=== PATIENT | female | born 1935 | race Caucasian/White ===

== ENCOUNTER 2018-06-19 05:38 | Inpatient (IN) ==
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
[2018-06-19] MEDS ORDERED: Metoprolol Tartrate 25 MG Tablet PO ONE (06:30)
[2018-06-19] MEDS ORDERED: Sodium Chlor 0.9% Inj 500 ML IV.CONT ONE (06:30)
[2018-06-19] MEDS ORDERED: Chlorhexidine Gluconate 2% 1 Pack (2 Cloths) TOPICAL ONE (06:30)
[2018-06-19] MEDS ORDERED: Vancomycin Inj 1,000 MG in Sodium Chlor 0.9% Inj 250 ML IV.SIG SCH (07:00)
[2018-06-19] MEDS ORDERED: SODIUM CHLOR 0.9% IV.SIG SCH ×2 (07:00→09:25)
[2018-06-19] MEDS ORDERED: TRANEXAMIC ACID IV.SIG SCH ×2 (07:00→09:25)
[2018-06-19] MEDS ORDERED: fentaNYL Citrate Inj 250 MCG/5 ML Ampul ONE (07:06)
[2018-06-19] MEDS ORDERED: Acetaminophen 325 MG Tablet PO PRN (10:05)
[2018-06-19] MEDS ORDERED: Naloxone Inj 0.4 MG/ML Vial IV.PUSH PRN (10:05)
[2018-06-19] MEDS ORDERED: Post-op Orders (for Pharmacy) OTHER STA (10:05)
[2018-06-19] MEDS ORDERED: Aluminum/Magnesium/Simethacone Susp 30 ML UDC PO PRN (10:05)
[2018-06-19] MEDS ORDERED: Tranexamic Acid Inj 1,000 MG in Sodium Chlor 0.9% Inj 100 ML IV.SIG ONE (10:05)
[2018-06-19] MEDS ORDERED: Morphine Sulfate Inj 2 MG/ML Vial IV.PUSH PRN (10:05)
[2018-06-19] MEDS ORDERED: Bisacodyl 10 MG Supp RECTAL PRN (10:05)
[2018-06-19] MEDS ORDERED: Morphine Inj 30 MG/30 ML PCA.VIAL PCA ONE (10:30)
[2018-06-19] MEDS ORDERED: *morphine SULFATE 4 MG/ML PERIprocedure ONLY ONE (10:37)
[2018-06-19] MEDS ORDERED: *Ondansetron Inj 4 MG/2 ML Vial PERIprocedural Use ONLY ONE (10:47)
[2018-06-19] MEDS ORDERED: Vancomycin Inj 1 GM/200 ML PIGGYBACK IV.SIG SCH (11:00)
[2018-06-19] MEDS ORDERED: Morphine Inj 30 MG/30 ML PCA.VIAL PCA PRN (11:15)
--- NOTE | 2018-06-19 11:16 | XR ---
EXAM DATE: 06/19/2018 11:07 AM EST AGE/SEX: 83 years / Female INDICATIONS: Post op left total hip replacement. CLINICAL DATA: This is the patient's initial encounter. Patient reports that signs and symptoms have been present for 1 day and indicates a pain score of 6/10. MEDICAL/SURGICAL HISTORY: None. . Right total hip. COMPARISON: No prior exams available for comparison. FINDINGS: AP and crosstable lateral views of the left hip were obtained as well as an AP view of the pelvis. Th e patient is status post hip arthroplasty. The acetabular and femoral components are intact and in no rmal alignment. There are surgical drains along the lateral soft tissues. Soft tissue swelling and ga s is noted. The patient is also noted to be status post more remote right hip arthroplasty. CONCLUSION: Expected postoperative changes status post left hip arthroplasty. Electronically signed by: Ashish Betancourt MD 06/19/2018 11:15 AM EST
--- NOTE | 2018-06-19 11:30 | MP ---
cc: James Dockery MD DATE OF OPERATION: 06/19/2018 PREOPERATIVE DIAGNOSIS: Osteoarthritis of the left hip. POSTOPERATIVE DIAGNOSIS: Osteoarthritis of the left hip. PROCEDURE PERFORMED: Left total hip arthroplasty. SURGEON: Dr. Dockery. ANESTHESIA: General endotracheal. INDICATIONS: An 83-year-old white female with a lengthy history of bilateral hip pain extending back for more than 4 years for which she was diagnosed as having degenerative joint disease. In approximately 2013, she underwent a right total hip arthroplasty completed in an uncomplicated manner. She tolerated the operative procedure well and her postoperative course was unremarkable. For a number of years thereafter, she was doing reasonably well until returning to the office in the more recent past, indicating that with the passage of time, she was becoming progressively more symptomatic with ongoing pain involving her left hip. X-ray studies revealed obvious degenerative changes with pronounced narrowing of the joint space. Total hip components were in place about the right hip with no suggestion for loosening or wear. Findings and treatment options were reviewed. The pros and cons of continuing with conservative management versus operative intervention that would involve total hip replacement were outlined in detail. Emphasis was made regarding the fact that the decision to proceed with surgery would be left entirely to the patient's discretion. The patient considered her options in this regard and given the ongoing nature of her discomfort and the favorable response she had noted from previous surgery, she indicated her desire to proceed with similar treatment at this time for which she was scheduled for admission in order that total hip replacement be completed. FORMAT: Following the induction of satisfactory general anesthesia by endotracheal intubation as completed per the Department of Anesthesia, the patient was positioned upon the operating table in a right lateral decubitus fashion. The left hip and lower extremity proper were isolated with a U-drape, thereafter being prepped with Betadine solution and draped into a sterile field in the routine manner. Prior to initiation of the actual procedure, the standard timeout protocol was completed. All parameters were appropriately addressed and confirmed by operating room personnel. A standard posterolateral approach to the hip was initiated through a sharp skin incision and developed through underlying subcutaneous tissue. Hemostasis was maintained by electrocautery. By deepening dissection, the fascia overlying the gluteus musculature was exposed and thereafter sharply incised to the limits of the incision. The underlying gluteus fibers were divided with the Bovie on cutting current. Progressive dissection facilitated exposure of the short external rotator structures. The piriformis tendon was utilized as an anatomical landmark and division of these structures was completed in a superior to inferior orientation and reflected medially, exposing the posterior capsule. The sciatic nerve was identified and protected. An L-shaped capsulotomy was accomplished with posterior dislocation of the femoral head completed. Examination revealed significant degenerative changes involving the entire articular surface. The femoral template was positioned for alignment orientation. The neck was scored and thereafter divided with power saw, the amputated segment being passed to the back table as surgical specimen. Attention was initially directed to the proximal femur. Cancellous bone was harvested. The tapered reamer was inserted for alignment orientation. Sequential rasping and broaching was accomplished from 7 mm through 11 mm with the calcar syed being utilized at the 11 mm cage. The 11 mm stem was determined to be a favorable fit. Trial component being removed, attention was redirected to the acetabulum. The labrum and reactive soft tissue were sharply excised. Progressive reaming was accomplished from 46 mm through 53 mm. The 54 trial shell positioned and determined to be satisfactory. All trial components were removed. The wound was copiously irrigated with pulsating antibiotic solution, hemostasis maintained by electrocautery. Harvested cancellous bone was digitally impacted in the depths of the acetabulum and thereafter a 54 mm RingLoc acetabular shell was firmly seated at approximately 45 degrees inclination to the horizontal and slight anteversion. Two 25 mm 6.5 cancellous screws were inserted superiorly to augment fixation. The permanent high wall acetabular liner was affixed to the acetabular shell. The trial 11 broach was repositioned and a trial reduction followed utilizing a 36 mm modular head with -6 mm neck length adaptor. The hip readily reduced and was carried through a passive range of motion, stability demonstrated at 90 degrees flexion and 45 degrees internal rotation. Open dislocation completed, the canal thoroughly irrigated and dried and thereafter a size 11 Echo Bi-Metric standard femoral stem was firmly seated to its 36 mm ceramic head with -6 mm neck length adapter attached. Open reduction completed and repeat range of motion again noted stability as previously described. Final irrigation was accomplished, hemostasis maintained by electrocautery. The posterior capsule was repaired with 0-Vicryl suture. Piriformis tendon and short external rotator structures were reapproximated in a similar fashion. Hemovac drain tubes were inserted through superior stab wounds. The fascia of the gluteus musculature was reapproximated with a running 0-Vicryl suture. The remaining portion of the wound was closed in layers in the routine manner, skin margins being reapproximated with a running subcuticular 3-0 Vicryl suture over which Steri-Strips were applied. Xeroform gauze and a bulky dry sterile dressing placed. The patient was repositioned into a supine orientation where an abduction splint was attached. Anesthesia was discontinued. She was thereafter transferred to a hospital bed and returned to the recovery room in satisfactory condition, having tolerated her operative procedure well. ESTIMATED BLOOD LOSS: Approximately 250 mL as determined per anesthesia. All implants were of the Biomet pantograph engraver. MD DAKOTAH Rudolph/artie , 09:58 AM , 10:10 AM
[2018-06-19] MEDS ORDERED: Tranexamic Acid Inj 1,000 MG in Sodium Chlor 0.9% Inj 100 ML IV.SIG SCH (12:00)
--- NOTE | 2018-06-19 18:00 | P.CON ---
History of Present Illness Service: [facility] Consult date: 06/19/18 Requesting Physician: James Dockery Reason for Consult: Medical management Primary Care Provider: Sukhwinder Pike MD, PhD Chief Complaint: "Hip surgery" History of Present Illness: 83-year-old female with past medical history significant for bilateral hip pain with degenerative joint disease admitted to the hospital for scheduled left hip arthroplasty today. [facility] consulted for medical management during her hospitalization. Patient is seen and examined sitting up in bed in no acute distress. She reports history of hysterectomy, bilateral cataract surgery, and right hip arthroplasty. Denies any tobacco or alcohol abuse. Family history significant for colon cancer in her mother. She reports no fevers, chills, nausea, vomiting, diarrhea, cough, shortness of breath or chest pain. At the moment she describes the left hip pressure and discomfort. She voices no other acute concerns or complaints at the moment. Review of Systems All other systems reviewed negative except as stated in HPI [facility] - History History Provided By: Patient - Medical History Medical History: Medical History (Last Reviewed 06/19/18 @ 18:49 by Emanuel Bonilla) Arthritis Chronic pain Diminished hearing Head injury Onset Date: ~1983 Migraine Murmur, cardiac PTSD (post-traumatic stress disorder) Wears glasses Wears hearing aid - Surgical History Surgical History: Surgical History (Last Reviewed 06/19/18 @ 18:49 by Emanuel Bonilla) History of abdominal hysterectomy History of appendectomy History of arthroplasty History of cataract extraction with lens replacement History of tonsillectomy - Family History Family History: Family History (Last Updated 06/19/18 @ 18:49 by Emanuel Bonilla) Mother Colon cancer - Social History I have reviewed the patient's Social History: Yes - Tobacco History Second Hand Smoke Exposure: No Tobacco Use In Past 30 Days: No Smoking Status: Never smoker - Alcohol History How Often Do You Have a Drink Containing Alcohol: Never - Substance Use History Substance History: No History of Abuse - Travel History Recent Travel in the [place] Within the Last 8 Weeks: No Recent Travel Out of the Country Within the Last 8 Weeks: No - Immunization History Hx Influenza Vaccine This Season: No Medications and Allergies Active Medications: Active Medications Acetaminophen (Tylenol) 650 mg PO Q6H PRN PRN Reason: FEVER > 102 F Hydrocodone Bitart/Acetaminophen (Deary 5/325) 1 tab PO Q4H PRN PRN Reason: PAIN LESS THAN 5 ON SCALE Hydrocodone Bitart/Acetaminophen (Deary 5/325) 2 tab PO Q6H PRN PRN Reason: PAIN SCALE 5 TO 10 Al Hydrox/Mg Hydrox/Simethicone (Mag-Al Plus Susp Liq) 30 ml PO Q6H PRN PRN Reason: INDIGESTION Al Hydroxide/Mg Hydroxide (Milk Of Magnesia Liq) 30 ml PO BID PRN PRN Reason: Mild Constipation Aspirin (Aspirin) 325 mg PO BID TATYANA Bisacodyl (Dulcolax Supp) 10 mg RECTAL DAILY PRN PRN Reason: SEVERE CONSITIPATION Fluoxetine HCl (Prozac) 20 mg PO BID TATYANA Tranexamic Acid 698 mg/ Sodium (Chloride) 106.98 mls @ 200 mls/hr IV.SIG ONCE TATYANA Stop: 06/20/18 06:59 Last Infusion: 06/19/18 08:22 Dose: Infused Vancomycin HCl 1,000 mg/ (Sodium Chloride) 250 mls @ 250 mls/hr IV.SIG FAMILY CASEWORKER [facility] Stop: 06/22/18 06:24 Last Admin: 06/19/18 06:57 Dose: 250 mls/hr Lactated Ringer's (Lr 1000 Ml Inj) 1,000 mls @ 30 mls/hr IV.CONT .Q24H ONE Stop: 06/20/18 06:29 Last Admin: 06/19/18 06:20 Dose: 30 mls/hr Sodium Chloride (Ns Inj) 500 mls @ 30 mls/hr IV.CONT .[id number] ONE Stop: 06/19/18 23:09 Last Admin: 06/19/18 06:54 Dose: Not Given Morphine Sulfate (Morphine Inj) 30 mg in 30 mls @ 0 mls/hr MAITRE D' UNSCH PRN PRN Reason: prn pain Stop: 06/20/18 11:14 Last Admin: 06/19/18 13:00 Dose: 0 mls/hr Lactated Ringer's (Lr 1000 Ml Inj) 1,000 mls @ 80 mls/hr IV.CONT .[id number] [facility] Last Admin: 06/19/18 10:46 Dose: 80 mls/hr Vancomycin HCl 1,000 mg/ (Sodium Chloride) 250 mls @ 250 mls/hr IV.SIG Q12H TATYANA Stop: 06/20/18 06:59 Tranexamic Acid 1,000 mg/ (Sodium Chloride) 110 mls @ 200 mls/hr IV.SIG FAMILY [employer] [facility] Stop: 06/19/18 18:00 Lactulose (Lactulose Liq) 30 ml PO DAILY PRN PRN Reason: SEVERE CONSITIPATION Latanoprost (Xalatan 0.005% Opth Drops) 1 drop EACH EYE BID [facility] Miscellaneous Information ([facility] [place] [facility] 0 each OTHER UNSCH PRN PRN Reason: SEE DOSE INSTRUCTIONS Miscellaneous Information ([facility] [place] [facility] 1 each OTHER UNSCH PRN PRN Reason: SEE LABEL COMMENTS Stop: 06/20/18 09:59 Morphine Sulfate (Morphine Inj) 2 mg IV.PUSH Q3H PRN PRN Reason: BREAKTHROUGH PAIN Multivitamins/Folic Acid/Vitamin C (Flintstones) 1 tab PO DAILY [facility] Naloxone HCl (Narcan Inj) 0.4 mg IV.PUSH PRN PRN PRN Reason: Resp rate < 10 Ondansetron HCl (Zofran Inj) 4 mg IV.PUSH Q6H PRN PRN Reason: NAUSEA OR VOMITING Povidone Iodine (Betadine 7.5% Scrub) 1 applicatio TOPICAL ONCE [facility] Stop: 06/23/18 06:59 Senna/Docusate Sodium (Adelia-Colace) 1 tab PO BID [facility] Sennosides (Senokot) 17.2 mg PO BID PRN PRN Reason: Moderate Constipation Sodium Chloride (Ns Flush) 2 ml IV.FLUSH BID [facility] Sodium Chloride (Ns Flush) 2 ml IV.FLUSH PRN PRN PRN Reason: FLUSH AFTER USING IV ACCESS Zolpidem Tartrate (Ambien) 5 mg PO HS PRN PRN Reason: INSOMNIA Allergies Allergy/AdvReac Type Severity Reaction Status Date / Time Penicillins Allergy Severe Anaphylaxis Verified 06/19/18 06:25 Sulfa (Sulfonamide Allergy Severe Anaphylaxis Verified 06/19/18 06:25 Antibiotics) Home Medications Medication Instructions Recorded Confirmed Type [id number] K 1 tab PO DAILY 06/07/18 06/19/18 History [Adults Multivitamin] fluoxetine [Prozac] 20 mg PO BID 06/11/18 06/19/18 History latanoprost 1 drp OPHTHALMIC (EYE) BID 06/11/18 06/19/18 History Physical Exam Vital signs: Vital Signs 06/19/18 06:35 06/19/18 09:58 06/19/18 10:00 Temperature 97.8 F 97.7 F Pulse Rate 72 71 77 Respiratory Rate 16 14 14 Blood Pressure 139/88 124/60 135/61 Pulse Oximetry 95 99 97 06/19/18 10:15 06/19/18 10:30 06/19/18 10:45 Temperature Pulse Rate 64 70 64 Respiratory Rate 12 15 12 Blood Pressure 145/65 H 148/66 H 125/60 Pulse Oximetry 100 99 100 06/19/18 11:00 06/19/18 11:28 06/19/18 12:00 Temperature 97.6 F Pulse Rate 67 68 Respiratory Rate 14 14 15 Blood Pressure 128/60 132/58 L Pulse Oximetry 100 100 06/19/18 13:00 06/19/18 16:00 Temperature 97.1 F L Pulse Rate 67 65 Respiratory Rate 14 17 Blood Pressure 134/60 131/61 Pulse Oximetry 100 98 Intake & Output 06/18/18 06/19/18 06/19/18 18:59 06:59 18:59 Intake Total 1606.98 / 1606.98 Output Total 280 / 280 Balance 1326.98 / 1326.98 Weight 69.8 kg 69.8 kg Intake: IV 106.98 / 106.98 Cyklokapron Inj 698 MG In NS 106.98 / 106.98 Inj 100 ML @ 200 mls/hr IV.SIG ONCE TATYANA Rx#:[id number] Anesthesia Amount 1500 / 1500 Output: Estimated Blood Loss 250 / 250 Wound Drainage 30 / 30 Left Hip 30 / 30 Other: Weight On Admission 69.8 kg Narrative: GENERAL: Well-nourished, well-developed female who appears younger than stated age resting in bed comfortably in no acute distress. SKIN: Warm and dry. Left hip pressure dressing dry and intact with drain in place. HEAD: Atraumatic. Normocephalic. EYES: Pupils equal and round. No scleral icterus. No injection or drainage. ENT: No nasal bleeding or discharge. Mucous membranes pink and moist. NECK: Trachea midline. CARDIOVASCULAR: Regular rate and rhythm, 2/6 murmur noted. RESPIRATORY: No accessory muscle use. Clear to auscultation. Breath sounds equal bilaterally. GASTROINTESTINAL: Abdomen soft, non-tender, nondistended. + Bowel sounds MUSCULOSKELETAL: Extremities without clubbing, cyanosis, or edema. No obvious deformities. LLE with normal sensation,+ pulse, mobility limited secondary to pain. NEUROLOGICAL: Awake, alert, oriented x3. No obvious cranial nerve deficits. Motor grossly within normal limits. Upper extremity strength 5/5 bilaterally, right lower extremity strength 5/5, LLE limited due to surgery and pain. normal speech. PSYCHIATRIC: Appropriate mood and affect; insight and judgment normal. Results - Labs Labs: Laboratory Results - last 24 hr 06/19/18 06:25 Blood Type AB Positive Blood Type Recheck Required Antibody Screen Negative - Imaging Impressions Hip X-Ray 06/19/18 00:00 CONCLUSION: Expected postoperative changes status post left hip arthroplasty. Assessment and Plan - Plan 83-year-old female with past medical history significant for bilateral hip pain with degenerative joint disease admitted to the hospital for scheduled left hip arthroplasty today. [facility] consulted for medical management during her hospitalization. Osteoarthritis left hip -s/p left hip arthroplasty by Dr. dockery -Pain control with MAITRE D' and p.o. Deary -PT consulted for evaluation -DVT prophylaxis with aspirin 325 twice daily -Hip precautions per orthopedic services -H&H in the morning Dry eye syndrome -Continue Restasis and Latanoprost DVT prophylaxis-aspirin Thank you Dr. dockery for this consultation, will continue to follow along. Discussed Condition With: Patient and RN
[2018-06-19] MEDS: Vancomycin Inj 1,000 MG in Sodium Chlor 0.9% Inj 250 ML IV.SIG SCH (19:20)
[2018-06-19] MEDS ORDERED: Zolpidem Tartrate 5 MG Tablet PO PRN (21:00)
[2018-06-19] MEDS: Senna/Docusate Sodium 8.6/50 MG Tablet PO SCH (22:08)
[2018-06-19] MEDS: Aspirin 325 MG Tablet PO SCH (22:08)
[2018-06-19] MEDS: FLUoxetine 20 MG Capsule PO SCH (22:09)
[2018-06-19] MEDS: Latanoprost 0.005% Opth Drops 2.5 ML Bottle EACH EYE SCH (22:09)
[2018-06-20 06:19] LABS: Hematocrit 30.1 % (35.0-46.0); Hemoglobin 10.2 gm/dL (11.6-15.3)
--- NOTE | 2018-06-20 07:16 | P.DCO ---
- Diagnosis (1) Degenerative joint disease of left hip Status: Acute - Physical Therapy Order: Evaluate and treat, Improve ambulation, Strength and gait training - Home Health Nursing Order: Wound care and dressing changes, Nursing assessment with vital signs - Home Health Aide Order: To assist in: Bathing and personal care, liner reroll tender and meal prep - Brazing Machine Feeder Order: To evaluate: Living conditions/environment, Support services Order: To provide: Long range planning, Community services - Case Management Consult Case Management Consult-Home Health: Yes - Certification I have seen patient Sharon Black on 06/20/18. My clinical findings support the need for the requested home health care services because: Limited ability to care for self, High risk of falls I certify that my clinical findings support that this patient is homebound because: Post-op weakness, Unsteady gait/balance, Unsafe to leave home unassisted
[2018-06-20] MEDS: FLUoxetine 20 MG Capsule PO SCH ×2 (08:14→20:26)
[2018-06-20] MEDS: Senna/Docusate Sodium 8.6/50 MG Tablet PO SCH ×2 (08:14→20:26)
[2018-06-20] MEDS: Multivit/Folic Acid/Minerals Chewable Tablets PO SCH (08:14)
[2018-06-20] MEDS: Aspirin 325 MG Tablet PO SCH ×2 (08:14→20:26)
[2018-06-20] MEDS: Latanoprost 0.005% Opth Drops 2.5 ML Bottle EACH EYE SCH ×2 (08:15→20:27)
[2018-06-20] MEDS: Vancomycin Inj 1,000 MG in Sodium Chlor 0.9% Inj 250 ML IV.SIG SCH (09:31)
--- NOTE | 2018-06-20 11:23 | P.PN ---
Subjective Interval history: Follow-up visit for left hip arthroplasty. Patient seen and examined sitting up in chair with physical therapy at bedside. Reports some dizziness and nausea this morning, believes it is associated to exercises. Denies any fevers , chills or cough. Physical Exam Vital signs: Vital Signs 06/19/18 11:28 06/19/18 12:00 06/19/18 13:00 Temperature Pulse Rate 68 67 Respiratory Rate 14 15 14 Blood Pressure 132/58 L 134/60 Pulse Oximetry 100 100 06/19/18 16:00 06/19/18 20:00 06/20/18 00:00 Temperature 97.1 F L 97.8 F 97.8 F Pulse Rate 65 80 77 Respiratory Rate 17 20 20 Blood Pressure 131/61 100/65 110/67 Pulse Oximetry 98 98 98 06/20/18 04:00 06/20/18 08:00 06/20/18 09:05 Temperature 97.1 F L 98.0 F Pulse Rate 90 78 Respiratory Rate 20 12 Blood Pressure 110/65 104/65 Pulse Oximetry 95 93 L 99 Intake & Output 06/19/18 06/20/18 06/20/18 18:59 06:59 18:59 Intake Total 1606.98 / 1606.98 440 / 440 Output Total 280 / 280 30 / 30 Balance 1326.98 / 1326.98 410 / 410 Weight 69.8 kg 69.8 kg Intake: IV 106.98 / 106.98 200 / 200 LR 1000 mL Inj 1,000 ML @ 80 0 / 0 mls/hr IV.CONT .[id number] TATYANA Rx# :[id number] Cyklokapron Inj 698 MG In NS 106.98 / 106.98 Inj 100 ML @ 200 mls/hr IV.SIG ONCE TATYANA Rx#:[id number] Vancomycin Inj 1,000 MG In NS 200 / 200 Inj 250 ML @ 250 mls/hr IV.SIG Q12H TATYANA Rx#:[id number] Oral 240 / 240 Anesthesia Amount 1500 / 1500 Output: Estimated Blood Loss 250 / 250 Wound Drainage 30 / 30 30 / 30 Left Hip 30 / 30 30 / 30 Other: # Voids 1 1 Narrative: GENERAL: Well-nourished, well-developed female who appears younger than stated age in no acute distress. SKIN: Warm and dry. Left hip pressure dressing dry and intact with drain in place. HEAD: Atraumatic. Normocephalic. EYES: Pupils equal/round. No scleral icterus. No injection or drainage. ENT: Mucous membranes pink and moist. NECK: Trachea midline. CARDIOVASCULAR: Regular rate and rhythm, 2/6 murmur noted. RESPIRATORY: No accessory muscle use. Clear to auscultation. Breath sounds equal bilaterally. GASTROINTESTINAL: Abdomen soft, non-tender, nondistended. + Bowel sounds MUSCULOSKELETAL: Extremities without clubbing, cyanosis, or edema. No obvious deformities. LLE with normal sensation,+ pulse, mobility limited secondary to pain. NEUROLOGICAL: Awake, alert, oriented x3. No obvious cranial nerve deficits. Motor grossly within normal limits. Normal speech. PSYCHIATRIC: Appropriate mood and affect; insight and judgment normal. Results - Labs CBC & Chem 7: 06/20/18 05:59 Laboratory Results - last 24 hr 06/20/18 05:59 Hgb 10.2 L Hct 30.1 L - Imaging Impressions Hip X-Ray 06/19/18 00:00 CONCLUSION: Expected postoperative changes status post left hip arthroplasty. Assessment and Plan - Plan 83-year-old female with past medical history significant for bilateral hip pain with degenerative joint disease admitted to the hospital for scheduled left hip arthroplasty today. [facility] consulted for medical management during her hospitalization. Osteoarthritis left hip -s/p left hip arthroplasty by Dr. robison 06/19 -Pain control with [employer]MI[employer] INSTRUCTOR and p.o. [place] -PT following recommend wheeled walker, home with PT -DVT prophylaxis with aspirin 325 twice daily -Hip precautions per orthopedic services -H&H this morning stable. Dry eye syndrome -Continue Restasis and Latanoprost DVT prophylaxis-aspirin
--- NOTE | 2018-06-21 07:03 | MD ---
cc: James Dockery MD, Mark DATE OF DISCHARGE: 06/21/2018 ADMITTING DIAGNOSIS: Osteoarthritis, left hip. DISCHARGE DIAGNOSES: Osteoarthritis, left hip. HISTORY OF PRESENT ILLNESS: An 83-year-old white female with a lengthy history of bilateral hip pain extending back at least 4 years, at which time the patient was diagnosed as having osteoarthritis of both hips. She had initially conformed to conservative management and subsequently underwent a right total hip arthroplasty in 2013. She tolerated the procedure well and had an uneventful recovery thereafter; but with the passage of time became progressively more symptomatic with pain involving her left hip for which she return to the office in more recent evaluation, and at that time, x-ray studies revealed obvious degenerative changes involving her left hip with pronounced narrowing of the joint space. Total hip components are in place about the right hip with no suggestion for loosening or wear. Findings and treatment options were reviewed with the patient at that time. The pros and cons of continuing with conservative management versus operative intervention that would involve a total hip replacement on the left side were outlined. Emphasis was made regarding the fact that the decision to proceed with surgery would be left entirely to the patient's discretion. The patient felt that her symptoms had progressed to a point where she was ready to proceed accordingly; and in compliance with her wishes, she was scheduled for admission at this time in order that the above be accomplished. PHYSICAL EXAMINATION: At the time of admission revealed no localizing tenderness about the lateral aspect of the left hip. There was guarded mobility of the hip joint, especially involving internal rotation with pain elicited with additional restriction of abduction maneuvering. No associated crepitation or sensation of instability. Straight-leg raising was unremarkable at 80 degrees. Trent sign positive. Distal sensory grossly intact. Independent gait. HOSPITAL COURSE: Prior to admission to the hospital, the patient had undergone medical evaluation and clearance for surgery as completed by her primary care physician, Dr. Sukhwinder Pike. She was taken to the operating room on 06/19/2018, and on that date underwent a left total hip arthroplasty completed in an uncomplicated manner. The patient was noted to have tolerated her operative procedure well. Her postoperative course stable thereafter. Hemoglobin and hematocrit assessment on the first postoperative day was 10.2 and 30.1 respectively. The patient was progressively mobilized under the guidance of physical therapy, being permitted weightbearing to tolerance about the left lower extremity. Followup examination of her surgical wound noted to be intact, healing favorably with no evidence of infection. Medical followup per the hospitalist service. DVT prophylaxis initiated. House [facility]er consulted to assist with discharge planning. The patient consented to temporary rehab placement, noting that she resided independently and did not have immediate help available within the community. Plans were finalized in this regard; and pending medical clearance, she was scheduled for transfer on the second postoperative day, at which time she was noted to be making favorable progress with regard to her rehab program. She was scheduled to be seen in office followup in approximately 4 weeks. CONDITION AT THE TIME OF DISCHARGE: Stable. PROGNOSIS: Favorable. DISCHARGE MEDICATIONS: Included hydrocodone 5/325 #20, aspirin 325 mg 1 tab twice daily for 4 weeks #60. MD DAKOTAH Rudolph/ap , 06:41 AM , 06:49 AM
[2018-06-21] MEDS: Aspirin 325 MG Tablet PO SCH ×2 (09:19→20:07)
[2018-06-21] MEDS: Senna/Docusate Sodium 8.6/50 MG Tablet PO SCH ×2 (09:20→20:07)
[2018-06-21] MEDS: FLUoxetine 20 MG Capsule PO SCH ×2 (09:20→20:07)
[2018-06-21] MEDS: Multivit/Folic Acid/Minerals Chewable Tablets PO SCH (09:20)
[2018-06-21] MEDS: Latanoprost 0.005% Opth Drops 2.5 ML Bottle EACH EYE SCH ×2 (09:21→20:08)
--- NOTE | 2018-06-21 14:15 | P.PN ---
Physical Exam Vital signs: Vital Signs 06/20/18 16:00 06/20/18 19:47 06/20/18 23:00 Temperature 97.7 F 98.3 F 98.3 F Pulse Rate 73 89 89 Respiratory Rate 06 25 18 Blood Pressure 116/59 L 118/61 120/58 L Pulse Oximetry 96 95 94 L 06/21/18 08:00 06/21/18 12:00 Temperature 98.6 F 98.2 F Pulse Rate 85 83 Respiratory Rate 12 12 Blood Pressure 132/63 118/58 L Pulse Oximetry 94 L 96 Intake & Output 06/20/18 06/21/18 06/21/18 18:59 06:59 18:59 Intake Total 480 / 480 240 / 240 Balance 480 / 480 240 / 240 Weight 69.8 kg Intake: Oral 480 / 480 240 / 240 Other: # Voids 2 4 Date of Last Bowel Movement 06/18/18 06/21/18 # Bowel Movements 1 0 2 Results - Labs CBC & Chem 7: 06/20/18 05:59 Assessment and Plan - Plan 83-year-old female with past medical history significant for bilateral hip pain with degenerative joint disease admitted to the hospital for scheduled left hip arthroplasty today. [facility] consulted for medical management during her hospitalization. Osteoarthritis left hip -s/p left hip arthroplasty by Dr. robison 06/19 -Pain control with STOCK ASSOCIATE and p.o. [place] -PT following recommend wheeled walker, home with PT -DVT prophylaxis with aspirin 325 twice daily -Hip precautions per orthopedic services -H&H this morning stable. Dry eye syndrome -Continue Restasis and Latanoprost DVT prophylaxis-aspirin
[2018-06-22] MEDS: Senna/Docusate Sodium 8.6/50 MG Tablet PO SCH (08:26)
[2018-06-22] MEDS: Aspirin 325 MG Tablet PO SCH (08:26)
[2018-06-22] MEDS: Multivit/Folic Acid/Minerals Chewable Tablets PO SCH (08:26)
[2018-06-22] MEDS: FLUoxetine 20 MG Capsule PO SCH (08:27)
[2018-06-22] MEDS: Latanoprost 0.005% Opth Drops 2.5 ML Bottle EACH EYE SCH (09:40)
== END 2018-06-22 10:39 ==
LOC: HSDC 05:38 → EDSTATUS 07:30 → HSDI 10:02 → N06 13:40
PROVIDERS: ADMIT Orthopaedic Surgery; ATTEND Orthopaedic Surgery